=== PATIENT | female | born 1990 | race Caucasian/White ===

== ENCOUNTER 2019-04-16 23:02 | Emergency (ER) | payer MEDICAID ==
[~2019-04-16] VITALS: Ht 154.9 cm; Wt 49.9 kg
[2019-04-16 23:05] VITALS: Ht 154.9 cm; Wt 49.9 kg
[2019-04-17 02:27] VITALS: BP 140/75
== END 2019-04-17 02:27 | disposition home or self-care (01) ==
LOC: ED 23:02
DX: H66.92 Otitis media, unspecified, left ear (principal)

== ENCOUNTER 2019-05-29 19:16 | Emergency (ER) | payer MEDICAID ==
[~2019-05-29] VITALS: Ht 154.9 cm; Wt 49.9 kg
[2019-05-29 19:55] VITALS: Ht 154.9 cm; Wt 49.9 kg
[2019-05-29 20:53] VITALS: BP 126/89
== END 2019-05-29 20:54 | disposition home or self-care (01) ==
LOC: ED 19:16
DX: H92.02 Otalgia, left ear (principal)